=== PATIENT | male | born 1990 | race Caucasian/White ===

== ENCOUNTER 2017-04-01 15:33 | Emergency (ER) | payer BC ==
--- NOTE | 2017-04-01 15:51 | EDM.PDOC ---
ED HPI GENERAL MEDICAL PROBLEM - General Chief Complaint: ENT Problem Stated Complaint: R EAR COMPLAINT Time Seen by Provider: 04/01/17 15:49 Source of Information: Reports: Patient - History of Present Illness INITIAL COMMENTS - FREE TEXT/NARRATIVE: Patient is here today for evaluation of right ear pain and dental pain. He states that this happened approximately one week ago. He notes that his right ear and moderate to hurt. He states he is evaluated at [facility] a few days ago and started on amoxicillin 3 times a day. He denies any fever or chills. Denies any rhinorrhea, sore throat or cough. Treatments CERTIFIED MASSAGE THERAPIST: Reports: Other (see below) Other Treatments CERTIFIED MASSAGE THERAPIST: motrin 2 tabs Right Ear Pain Score (Numeric/FACES): 5 - Related Data Allergies Allergy/AdvReac Type Severity Reaction Status Date / Time No Known Allergies Allergy Verified 04/01/17 15:45 Home Meds: Home Meds Amoxicillin 500 mg PO TID 04/01/17 [History] Past Medical History Cardiovascular History: Reports: Other (See Below) Other Cardiovascular History: has monitor for cardiac issues place under skin in chest for issues with abnormal heartbeat; pt has not gone back to get it removed yet. almost in for 2 years Social & Family History - Tobacco Use Smoking Status *Q: Current Every Day Smoker Years of Tobacco use: 5 Packs/Tins Daily: 0.5 - Caffeine Use Caffeine Use: Reports: Soda - Recreational Drug Use Recreational Drug Use: No ED ROS ENT - Review of Systems Review Of Systems: See Below Constitutional: Reports: No Symptoms HEENT: Reports: Dental Pain, Ear Pain (Right) Respiratory: Reports: No Symptoms Cardiovascular: Reports: No Symptoms GI/Abdominal: Reports: No Symptoms Skin: Reports: No Symptoms ED EXAM, ENT - Physical Exam Exam: See Below Exam Limited By: No Limitations General Appearance: Alert, WD/WN, No Apparent Distress Ears: Normal External Exam, Normal Canal, Hearing Grossly Normal, Normal TMs Nose: Normal Inspection, Normal Mucousa Mouth/Throat: Normal Inspection, Normal Gums, Gum Swelling, Other (Bottom right wisdom tooth/32 partially erupted from the gum. The gum that is covering it partially is erythematous. There is no surrounding swelling or abscess.) Head: Atraumatic, Normocephalic Neck: Normal Inspection. No: Lymphadenopathy (R) Respiratory/Chest: No Respiratory Distress, Lungs Clear, Normal Breath Sounds Cardiovascular: Regular Rate, Rhythm, No Murmur Course - Vital Signs Last Recorded V/S: Last Vital Signs Temp 96.9 F 04/01/17 15:40 Pulse 92 04/01/17 15:40 Resp 20 04/01/17 15:40 BP 130/93 H 04/01/17 15:40 Pulse Ox 98 04/01/17 15:40 - Re-Assessments/Exams Free Text/Narrative Re-Assessment/Exam: Examination of patient's right ear is completely normal. I do suspect that his right ear pain is referred pain from his right lower wisdom tooth. This is not infected but does appear inflamed. He is also finishing a course of antibiotic for so this would cover this if had been infected and is just now not on exam because the antibiotic was working. Discussed with patient's that narcotics are not given for dental pain in her facility and he verbalized understanding of this. Will try nabumetone twice a day with food. Prescription was also given for quad cane Tips. I did explain to patient that the ultimate treatment would be removal of this tooth. He is to follow-up with his dentist [facility]. 04/01/17 17:26 Departure - Departure Time of Disposition: 16:02 Disposition: Home, Self-Care 01 Condition: Good Clinical Impression: Pain, dental - Discharge Information Instructions: Dental Abscess, [id number] Referrals: PCP,None [Primary Care Provider] - Forms: ED Department Discharge Additional Instructions: nabumetone up to 2x daily as needed for pain, avoid ibuprofen with this but you may take tylenol if needed Quad cane tips [facility] be picked [facility] at [facility] Follow-up with your dentist [facility], you will likely need your wisdom teeth removed
== END 2017-04-01 16:15 | disposition home or self-care (01) ==
LOC: JD.ED 15:33
DX: K08.89 Other specified disorders of teeth and supporting structures (principal); F17.210 Nicotine dependence, cigarettes, uncomplicated
CPT/HCPCS: 99283